=== PATIENT | female | born 1955 | race Caucasian/White ===

== ENCOUNTER → 2017-07-03 | Outpatient (CLI) | payer OTHER ==
--- NOTE | 2017-07-03 15:22 | US ---
EXAMINATION TYPE: US thyroid st tissue head/neck DATE OF EXAM: 07/03/2017 COMPARISON: NONE CLINICAL HISTORY: E04.9 GOITER. Enlarged thyroid per patient's physician GLAND SIZE: Right Lobe: 5.0 x 1.2 x 1.8 cm Overall Parenchyma: homogenous Left Lobe: 5.0 x 1.5 x 1.6 cm Overall Parenchyma: homogeneous Isthmus Thickness: 0.4 cm NODULES RIGHT: # of nodules measured on right: 3 1. 0.6 X 0.4 x 0.8 cm hypoechoic solid nodule at the mid pole with well-defined margins. This nodul e is wider than tall and shows intranodular vascularity. Prior size: no previous 2. 0.6 X 0.5 x 0.6 cm hypoechoic solid nodule at the mid pole with well-defined margins. This nodule is wider than tall and shows intranodular vascularity. Prior size: no previous 3. 0.6 X 0.4 x 0.5 cm hypoechoic solid nodule at the mid pole with well-defined margins. This nodule is wider than tall and shows intranodular vascularity. Prior size: no previous LEFT: # of nodules measured on left: 3 1. 0.7 X 0.3 x 0.5 cm hypoechoic solid nodule at the mid pole with well-defined margins. This nodul e is wider than tall and shows intranodular vascularity. Prior size: no previous 2. 0.6 X 0.3 x 0.5 cm hypoechoic solid nodule at the medial mid pole with well-defined margins. This nodule is wider than tall and shows intranodular vascularity. Prior size: no previous 3. 0.8 X 0.3 x 0.7 cm hypoechoic solid nodule at the medial/isthmus mid pole with well-defined edil ns. This nodule is wider than tall and shows intranodular vascularity. Prior size: no previous ISTHMUS: # of nodules measured in the isthmus: 1 1. 0.5 X 0.3 x 0.4 cm hypoechoic solid nodule at the right isthmus with well-defined margins. This nodule is wider than tall and shows intranodular vascularity. Prior size: no previous Bilateral neck scanned, no evidence of lymphadenopathy. Multiple small bilateral thyroid nodules with largest described above. IMPRESSION: Multiple subcentimeter thyroid nodules in an enlarged thyroid gland compatible with a multinodular go iter. The largest on the left measures 7 mm and the largest on the right measures 8 mm. Surveillance is recommended as these do not meet size criteria for percutaneous biopsy.
--- NOTE | 2017-07-04 08:33 | MM ---
Reason for exam: additional evaluation requested from prior study. Last mammogram was performed 1 year and 1 month ago. History: Patient is postmenopausal and has history of breast cancer at age 49. Malignant left mammotome panel of the left breast, August 26, 2005. Saline implant in the left breast, 2005. Mastectomy of the left breast, 2005. Stereotactic core biopsy of the left breast, December 31, 2002. Benign excisional biopsy, February 21, 1997. Excisional biopsy of the left breast, 1980. Took tamoxifen for 5 years 8 months beginning at age 49. Physical Findings: Nurse did not find any significant physical abnormalities on exam. MG Diagnostic Mammo RT w CAD CC and MLO view(s) were taken of the right breast. Prior study comparison: May 28, 2016, right breast MG diagnostic mammo RT w CAD. May 01, 2015, right breast MG 3d diag mammo w/cad RT. There are scattered fibroglandular densities. No suspicious abnormality. No significant new findings when compared with previous films. These results were verbally communicated with the patient and result sheet given to the patient on 07/03/17. ASSESSMENT: Negative, BI-RAD 1 RECOMMENDATION: Follow-up diagnostic mammogram of both breasts in 1 year.
== END | disposition home or self-care (01) ==
LOC: RADMAMWWP 14:08
PROVIDERS: ATTEND Family Medicine
DX: E04.2 Nontoxic multinodular goiter (principal); Z85.3 Personal history of malignant neoplasm of breast
CPT/HCPCS: 76536; 77065

== ENCOUNTER → 2018-07-30 | Outpatient (CLI) | payer OTHER ==
--- NOTE | 2018-07-30 10:12 | US ---
EXAMINATION TYPE: US thyroid st tissue head/neck DATE OF EXAM: 07/30/2018 COMPARISON: Thyroid ultrasound March 02, 2018 CLINICAL HISTORY: E04.2 NMG. fu thyroid nodules, no bx, no thyroid meds GLAND SIZE: Right Lobe: 4.6 x 1.9 x 1.5 cm Overall Parenchyma: homogenous Left Lobe: 5.0 x 2.0 x 1.2 cm Overall Parenchyma: homogeneous Isthmus Thickness: 0.4 cm NODULES RIGHT: # of nodules measured on right: 3 1. 0.4 X 0.4 x 0.3 cm hypoechoic nodule at the mid pole with well-defined margins. This nodule is wider than tall and shows intranodular vascularity. Prior size: 0.6 x 0.4 x 0.8 cm 2. 0.5 X 0.5 x 0.4 cm isoechoic nodule at the mid pole with well-defined margins. This nodule is wi nicki than tall and shows intranodular vascularity. Prior size: 0.6 x 0.5 x 0.5 cm 3. 0.6 X 0.5 x 0.3 cm hypoechoic nodule at the mid pole with well-defined margins. This nodule is w ider than tall and shows intranodular vascularity. Prior size: 0.6 x 0.4 x 0.5 cm LEFT: # of nodules measured on left: 3 1. 0.6 X 0.4 x 0.3 cm hypoechoic nodule at the mid pole with well-defined margins. This nodule is wider than tall and shows intranodular vascularity. Prior size: 0.7 x 0.3 x 0.5 cm 2. 0.5 X 0.5 x 0.3 cm hypoechoic nodule at the medial mid pole with well-defined margins. This nod ule is wider than tall and shows intranodular vascularity. Prior size: 0.6 x 0.3 x 0.5 cm 3. 0.5 X 0.6 x 0.3 cm hypoechoic nodule at the medial/isthmus pole with well-defined margins. This nodule is wider than tall and shows intranodular vascularity. Prior size: 0.8 x 0.3 x 0.7 cm ISTHMUS: # of nodules measured in the isthmus: 1 1. 0.4 X 0.4 x 0.2 cm solid nodule at the right isthmus with well-defined margins. This nodule is wider than tall and shows no intranodular vascularity. Prior size: 0.5 x 0.3 x 0.4 cm Bilateral neck scanned, no evidence of lymphadenopathy. There is redemonstration of homogeneous normal-sized thyroid with scattered small nodules bilaterally . No significant interval change. IMPRESSION: Overall stable findings, no new or greater than 1 cm solid or cystic nodules identified.
--- NOTE | 2018-07-30 11:38 | US ---
EXAMINATION TYPE: US abdomen complete DATE OF EXAM: 07/30/2018 COMPARISON: NONE CLINICAL HISTORY: R10.11 Right Upper Quad Pain. NPO, burning pain EXAM MEASUREMENTS: Liver Length: 15.4 cm Gallbladder Wall: 0.1 cm CBD: 0.3 cm CHD: 0.3 cm Spleen: 8.6 cm Right Kidney: 11.1 x 5.0 x 5.4 cm Left Kidney: 11.2 x 5.0 x 5.7 cm Pancreas: wnl Liver: left lobe cystic appearing lesion seen= 0.8 x 0.9 x 0.6 cm Gallbladder: wnl Evidence for sonographic [place]'s sign: neg CBD: wnl CHD: wnl Spleen: Limited visualization, wnl as seen Right Kidney: wnl Left Kidney: upper pole cystic appearing lesion seen in sinus= 1.8 x 1.8 x 1.5 cm Upper IVC: wnl Abd Aorta: No AAA visualized The visualized liver is heterogeneous. Technologist moeller subcentimeter thin-walled cyst left hepatic lobe. Evaluation for focal masses is suboptimal due to the heterogeneity. No acute hepatic ductal di latation is seen. The intrahepatic portion of the IVC and visualized abdominal aorta are within norm al limits. There is no evidence of cholelithiasis. Common bile duct is unremarkable. The visualize d portions of the pancreas are heterogeneous without mass or ductal dilatation. The spleen is unrema rkable. Kidneys are symmetric and free of hydronephrosis. Technologist moeller simple appearing 1.8 cm cyst upper to mid pole level left kidney. IMPRESSION: Suboptimal study without acute finding identified to account for patient's symptoms
== END | disposition home or self-care (01) ==
LOC: RADUSWWP 07:25
PROVIDERS: ATTEND Family Medicine
DX: R10.11 Right upper quadrant pain (principal); E04.2 Nontoxic multinodular goiter; Z85.3 Personal history of malignant neoplasm of breast
CPT/HCPCS: 76536; 76700

== ENCOUNTER → 2018-08-05 | Outpatient (CLI) | payer OTHER ==
--- NOTE | 2018-08-05 08:45 | MM ---
Reason for exam: additional evaluation requested from prior study. Last mammogram was performed 1 year and 1 month ago. History: Patient is postmenopausal and has history of breast cancer at age 49. Malignant left mammotome panel of the left breast, August 26, 2005. Saline implant in the left breast, 2005. Mastectomy of the left breast, 2005. Stereotactic core biopsy of the left breast, December 31, 2002. Benign excisional biopsy, February 21, 1997. Excisional biopsy of the left breast, 1980. Took tamoxifen for 5 years 8 months beginning at age 49. Physical Findings: Nurse did not find any significant physical abnormalities on exam. MG Diagnostic Mammo RT w CAD CC, MLO, and ML view(s) were taken of the right breast. Prior study comparison: July 03, 2017, right breast MG diagnostic mammo RT w CAD. May 28, 2016, right breast MG diagnostic mammo RT w CAD. The breast tissue is heterogeneously dense. This may lower the sensitivity of mammography. There are benign appearing round calcifications in the right breast. There is no discrete abnormality. These results were verbally communicated with the patient and result sheet given to the patient on 08/05/18. ASSESSMENT: Benign, BI-RAD 2 RECOMMENDATION: Follow-up diagnostic mammogram of the right breast in 1 year.
== END ==
LOC: RADMAMWWP 07:27
PROVIDERS: ATTEND Family Medicine
DX: Z08 Encounter for follow-up examination after completed treatment for malignant neoplasm (principal); Z85.3 Personal history of malignant neoplasm of breast
CPT/HCPCS: 77065

== ENCOUNTER → 2019-01-07 | Outpatient (CLI) | payer OTHER ==
--- NOTE | 2019-01-07 16:55 | XR ---
EXAMINATION TYPE: XR chest 2V DATE OF EXAM: 01/07/2019 COMPARISON: NONE HISTORY: M54.6, pain TECHNIQUE: Frontal and lateral views of the chest are obtained. FINDINGS: There is no focal air space opacity, pleural effusion, or pneumothorax seen. The cardiac silhouette size is within normal limits. The patient is rotated. The osseous structures are intact. IMPRESSION: No acute cardiopulmonary process.
--- NOTE | 2019-01-07 21:37 | CT ---
EXAMINATION TYPE: CT abdomen pelvis wo con DATE OF EXAM: 01/07/2019 HISTORY: Pt c/o RT upper quadrant pain, more to the side and lower central abdominal pain CT DLP: 832 mGycm. Automated Exposure Control for Dose Reduction was Utilized. TECHNIQUE: CT scan of the abdomen and pelvis is performed with oral but without IV contrast. COMPARISON: NONE FINDINGS: Within the limitations of a non-contrast study, the following observations are made. LUNG BASES: Partial visualization of left breast implant. Patchy left basilar linear scarring and/or atelectasis LIVER/GB: No CT dense intraluminal gallstones or surrounding inflammatory change around gallbladder. PANCREAS: No significant abnormality is seen. SPLEEN: No significant abnormality is seen. ADRENALS: No significant abnormality is seen. KIDNEYS: There is 1.2 cm round low-density lesion centrally left kidney axial image 39 2 small to fur ther characterize but presumed benign. No renal calculi or hydronephrosis is seen bilaterally. BOWEL: Oral contrast reaches level of sigmoid colon. No suspicious small or large bowel dilatation. GENITAL ORGANS: Anteverted uterus is seen. LYMPH NODES: No greater than 1cm abdominal or pelvic lymph nodes are appreciated. OSSEOUS STRUCTURES: No significant abnormality is seen. OTHER: No significant additional abnormality is seen. IMPRESSION: No acute finding identified to account for patient's symptoms of right upper quadrant desmond n.
== END | disposition home or self-care (01) ==
LOC: RADCTMAIN 15:15
PROVIDERS: ATTEND Family Medicine
DX: R10.9 Unspecified abdominal pain (principal); M54.6 Pain in thoracic spine
CPT/HCPCS: 71046; 74176

== ENCOUNTER 2019-01-20 09:42 | Day surgery (SDC) | payer OTHER ==
[2019-01-18 11:10] VITALS: BMI 26.6
--- NOTE | 2019-01-20 08:49 | P.GSHP ---
History of Present Illness H&P Date: 01/20/19 CHIEF COMPLAINT: Colon screen HISTORY OF PRESENT ILLNESS: The patient is a 63-year-old female who presents for colon screen. Lower endoscopy was offered for further evaluation and management. PAST MEDICAL HISTORY: Please see list. PAST SURGICAL HISTORY: Please see list. MEDICATIONS: Please see list. ALLERGIES: Please see list. SOCIAL HISTORY: No illicit drug use FAMILY HISTORY: No reports of Crohn disease or ulcerative colitis. REVIEW OF ORGAN SYSTEMS: CONSTITUTIONAL: No reports of fevers or chills. PHYSICAL EXAM: VITAL SIGNS: Stable GENERAL: Well-developed pleasant in no acute distress. HEENT: No scleral icterus. Extraocular movements grossly intact. Moist buccal mucosa. NECK: Supple without lymphadenopathy. CHEST: Unlabored respirations. Equal bilateral excursions. CARDIOVASCULAR: Regular rate and rhythm. Distal 2+ pulses. ABDOMEN: Soft, nontender, nondistended. MUSCULOSKELETAL: No clubbing, cyanosis, or edema. ASSESSMENT: 1. Colon screen. PLAN: 1. Recommend proceeding with a lower endoscopy Past Medical History Past Medical History: Cancer Additional Past Medical History / Comment(s): HX LT BREAST CANCER 2005. RECENT ABD. PAIN AND DIARRHEA History of Any Multi-Drug Resistant Organisms: None Reported Past Surgical History: Breast Surgery Additional Past Surgical History / Comment(s): LT MASTECTOMY. COLONOSCOPY Past Anesthesia/Blood Transfusion Reactions: No Reported Reaction Smoking Status: Former smoker - Past Family History Mother Family Medical History: Cancer Brother(s) Family Medical History: Deep Vein Thrombosis (DVT) Medications and Allergies Home Medications Medication Instructions Recorded Confirmed Type No Known Home Medications 01/18/19 01/18/19 History Allergies Allergy/AdvReac Type Severity Reaction Status Date / Time Penicillins Allergy Unknown Verified 01/18/19 11:02 Childhood
[~2019-01-20 09:42] MED LIST: LACTATED RINGERS 1,000 ML IV SCH; LIDOCAINE 1% 20 ML VIAL (10MG/ML) FOR IV START INTRADERMA PRN
[2019-01-20 10:07] VITALS: TEMP 98.5
[2019-01-20] MEDS ORDERED: PROPOFOL 10 MG/ML 20 ML VIAL IV ONE (10:24)
[2019-01-20] MEDS ORDERED: LIDOCAINE 1% INJ 10MG/ML (20 ML MDV) ONE (10:24)
--- NOTE | 2019-01-20 10:52 | P.PCN ---
Date of Procedure: 01/20/19 Description of Procedure: PREOPERATIVE DIAGNOSIS: Colonoscopy screening Personal history of colon polyps Family history cancer, mother POSTOPERATIVE DIAGNOSIS: Colonoscopy screening Personal history of colon polyps Family history cancer, mother Sigmoid colon polyps OPERATION: Colonoscopy to the ileocecal valve and appendiceal orifice. Colonoscopy with multiple cold forceps biopsies. SURGEON: Miya Longoria MD. ANESTHESIA: MAC. INDICATIONS: The patient is a 63-year-old female who presents for colonoscopy screening. Last colonoscopy 5 years ago. Benefits and risks were described and informed consent was obtained. DESCRIPTION OF PROCEDURE: The patient had undergone Suprep. She had been brought into the operating room and laid in the left lateral decubitus position. After adequate intravenous sedation, the rectum was examined with 2% lidocaine jelly. No external hemorrhoids were encountered. The rectal tone was within normal limits. No lesions were palpated in the rectal vault. An Olympus colonoscope was advanced until the ileocecal valve and appendiceal orifice were clearly viewed. The prep was good. The scope was removed with visualization of each mucosal fold. No scattered diverticulosis was encountered. Colonic polyps were found and cold forcep biopsy. No evidence of focal colitis was found. Retroflexion of the scope demonstrated grade 1 internal hemorrhoids without active bleeding or inflammation. The colon was desufflated. The patient had tolerated the procedure well. Withdrawal time was over 6 minutes. FINDINGS: Aronchick preparation quality scale 2 (1-5) Internal hemorrhoids, grade 1 No external hemorrhoids, grade 2. No arteriovenous malformations No scattered diverticulosis Removal of 2 polyps: - Cold forceps biopsy at 30 cm from the anal verge x 2 , 4 mm and 3 mm polyp, descending colon No focal colitis. RECOMMENDATIONS: Repeat colonoscopy 3 years, 2021 Plan - Discharge Summary Discharge Rx Participant: No New Discharge Prescriptions: No Action No Known Home Medications Discharge Medication List No Known Home Medications 01/18/19 [History]
[2019-01-20 10:54] VITALS: RESP 16
[2019-01-20 11:14] VITALS: BP 127/90; PULSE 64
== END 2019-01-20 11:50 | disposition home or self-care (01) ==
LOC: ORWHC2ENDO 09:42
PROVIDERS: ATTEND Surgery Plastic and Reconstructive Surgery
DX: Z12.11 Encounter for screening for malignant neoplasm of colon (principal); K64.0 First degree hemorrhoids; D12.5 Benign neoplasm of sigmoid colon; Z80.9 Family history of malignant neoplasm, unspecified; Z85.3 Personal history of malignant neoplasm of breast; Z86.010 Personal history of colon polyps; Z88.0 Allergy status to penicillin
CPT/HCPCS: 88305; 45380; J2001; J2704

== ENCOUNTER 2019-03-02 06:25 | Day surgery (SDC) | payer OTHER ==
[2019-02-24 15:24] VITALS: BMI 27.4
[~2019-03-02 06:25] MED LIST changes: +DEXAMETHASONE SOD PHOSPHATE 10 MG/ML 1 ML VIAL IV ONE; +MIDAZOLAM 2 MG/2 ML VIAL IV PRN; +ONDANSETRON 4 MG/2 ML VIAL IVP ONE; +Pre Op ABX Message 1 EACH MISC MISCELLANE ONE; +SCOPOLAMINE 1.5MG/72HR PATCH TRANSDERM ONE
[2019-03-02] MEDS ORDERED: LIDOCAINE 1% 20 ML VIAL (10MG/ML) FOR IV START SQ ONE (07:03)
[2019-03-02] MEDS ORDERED: LIDOCAINE 1% INJ 10MG/ML (20 ML MDV) ONE (07:25)
[2019-03-02] MEDS ORDERED: MIDAZOLAM 2 MG/2 ML VIAL ONE (07:25)
[2019-03-02] MEDS ORDERED: PROPOFOL 10 MG/ML 20 ML VIAL IV ONE (07:25)
[2019-03-02] MEDS ORDERED: fentaNYL (PF) 50 MCG/ML 2 ML AMP ONE (07:25)
[2019-03-02] MEDS ORDERED: KETOROLAC 30 MG/ML 1 ML VIAL ONE (07:25)
[2019-03-02] MEDS ORDERED: SODIUM CHLORIDE 0.9% 50 ML with ceFAZolin 2,000 MG IV ONE ×2 (07:30)
[2019-03-02 08:49] VITALS: TEMP 96.8
[2019-03-02] MEDS: HYDROmorphone 0.5 MG/0.5 ML SYRINGE IVP PRN ×4 (08:50→09:00)
[2019-03-02] MEDS ORDERED: LACTATED RINGERS 1,000 ML IV ONE (09:15)
--- NOTE | 2019-03-02 09:22 | OP ---
OPERATIVE REPORT DATE OF SURGERY: March 02, 2019. SURGEON: Austin Riley MD PREOPERATIVE DIAGNOSES: 1. Capsular contracture, left breast. 2. Personal history of breast cancer. POSTOPERATIVE DIAGNOSES: 1. Capsular contracture, left breast. 2. Personal history of breast cancer. OPERATIVE PROCEDURES: 1. Removal of left breast implant. 2. Capsulectomy. OPERATIVE INDICATIONS: The patient is a 63-year-old female who has a past history of breast cancer involving the left breast for which she underwent mastectomy and then reconstructive surgery with tissue expansion and subsequent placement of the implant with nipple reconstruction. The patient's surgeries were performed in 2005. The textured shaped implant was used for her reconstruction. 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 The patient was seen and evaluated in the office. A capsular contracture is present. It is not severe. There is no associated seroma or lymphadenopathy on clinical exam. The patient was counseled to surgical options. She does not want any kind of breast implant whatsoever and desires that this implant is removed. I have also recommended a complete capsulectomy. The patient understands if there is sufficient fluid present around the implant or chronic seroma that this could be tested for a breast implant associated cancer, however, I feel it is unlikely there will be sufficient fluid for any practical testing. She has requested I perform the surgery today. OPERATIVE PROCEDURE SUMMARY: The patient is seen in presurgical area, markings made, procedure reviewed. All questions answered. She is transported to the operating room where she was placed in supine position. Following the induction of general anesthesia via the laryngeal mask airway, the patient was prepped and draped in usual fashion. The left prior mastectomy incision site was used for incision today. Skin marker was used to judit the area. The incision then made dividing skin in full-thickness fashion, transverse fashion. Followed by use of cauterization device in subcutaneous tissue layer and then elevate skin and subcutaneous tissue flaps off the muscle flap capsular edge. The muscle flap was quite adherent to the capsule and with the implant present it would require extending the incision to remove the capsule. Therefore, incision was made through the muscle flap tissue exposing the implant. The implant was intact. There was no fluid of any significance in the cavity. The implant was sent to pathology. The capsulectomy was now performed by grasping the capsule edges with Allis clamps and as well as using Allis clamps to retract the muscular edge and dissection performed with cautery removing the capsule and sending the tissue to pathology. Hemostasis maintained with cautery while dissecting the capsule. Irrigation was now performed using a liter of saline and hemostasis was excellent. A 10 flat channel drain was inserted in the surgical field and brought out a separate stab incision in left anterior lateral chest wall and sutured in place with 2-0 Prolene. The drains connected to close bulb suction. The incision was now closed approximating the deep dermis with inverted interrupted 4-0 Monocryl and closed the skin with running 5-0 Prolene. Surgical lira cleansed with saline, dried and postoperative bandages placed using Kerlix squares secured with 3M Medipore tape and then positioned a size 3 mammary support with additional gauze padding anteriorly to apply pressure to the site. The patient was then awakened from her anesthetic, laryngeal mask airway removed and transferred to recovery room in good condition with stable vital signs. The estimated blood was 25 mL. There were no complications. MMODL / IJN: [id number] /
[2019-03-02] MEDS ORDERED: HYDROcodone/APAP 5-325MG 1 EACH TAB PO ONE ×3 (10:00→10:40)
[2019-03-02 10:26] VITALS: RESP 16
[2019-03-02 11:38] VITALS: BP 111/69; PULSE 64
== END 2019-03-02 11:40 | disposition home or self-care (01) ==
LOC: OR 06:25
PROVIDERS: ATTEND Plastic Surgery
DX: T85.44XA Capsular contracture of breast implant, initial encounter (principal); N60.32 Fibrosclerosis of left breast; N61.0 Mastitis without abscess; Z85.3 Personal history of malignant neoplasm of breast; Z90.12 Acquired absence of left breast and nipple; Z88.0 Allergy status to penicillin; Z87.891 Personal history of nicotine dependence; Z98.890 Other specified postprocedural states; Y81.2 Prosthetic and other implants, materials and accessory general- and plastic-surgery devices associated with adverse incidents
CPT/HCPCS: 19371; 88300; 88302; J2250; J1100; J2405; J0690; J2001; J3010; J1885; J2704; J1170

== ENCOUNTER 2020-10-25 10:31 | Day surgery (SDC) | payer BC, OTHER ==
[2020-10-19 08:36] VITALS: BMI 24.2
[~2020-10-25 10:31] MED LIST changes: -DEXAMETHASONE SOD PHOSPHATE 10 MG/ML 1 ML VIAL IV ONE; +DEXAMETHASONE SOD PHOSPHATE 4 MG/ML 1 ML VIAL IV ONE; +HYDROmorphone 0.5 MG/0.5 ML SYRINGE IVP PRN; +LIDOCAINE 1% (10MG/ML) FOR IV START INTRADERMA PRN; -LIDOCAINE 1% 20 ML VIAL (10MG/ML) FOR IV START INTRADERMA PRN; -ONDANSETRON 4 MG/2 ML VIAL IVP ONE; -SCOPOLAMINE 1.5MG/72HR PATCH TRANSDERM ONE
[2020-10-25 11:02] VITALS: RESP 16
[2020-10-25] MEDS: ONDANSETRON 4 MG/2 ML VIAL IVP ONE ×2 (11:17→14:56)
[2020-10-25] MEDS ORDERED: LIDOCAINE 1% INJ 10MG/ML (20 ML MDV) ONE (13:31)
[2020-10-25] MEDS ORDERED: SUCCINYLCHOLINE CHLORIDE 100 MG/5 ML SYR IV ONE (13:31)
[2020-10-25] MEDS ORDERED: MIDAZOLAM 2 MG/2 ML VIAL ONE (13:31)
[2020-10-25] MEDS ORDERED: fentaNYL (PF) 50 MCG/ML 2 ML AMP ONE (13:31)
[2020-10-25] MEDS ORDERED: PROPOFOL 10 MG/ML 20 ML VIAL IV ONE (13:31)
[2020-10-25 14:50] VITALS: TEMP 98
[2020-10-25] MEDS ORDERED: HYDROcodone/APAP 5-325MG 1 EACH TAB ONE (16:00)
[2020-10-25] MEDS ORDERED: HYDROcodone/APAP 5-325MG 1 EACH TAB PO ONE (16:05)
[2020-10-25 16:43] VITALS: BP 114/76; PULSE 51
--- NOTE | 2020-10-25 19:44 | OP ---
OPERATIVE REPORT DATE OF SERVICE: 10/25/2020 PREOPERATIVE DIAGNOSES: 1. Acquired loss of left breast. 2. Personal history of breast cancer. POSTOPERATIVE DIAGNOSES: 1. Acquired loss of left breast. 2. Personal history of breast cancer. OPERATIVE PROCEDURE: 1. Exploration of left reconstructed breast with insertion of tissue production control scheduler for delayed left breast reconstruction. 2. Implantation of reconstructive graft for left breast reconstruction. OPERATIVE INDICATIONS: Patient is a 64-year-old female who underwent mastectomy in 2005 with tissue production control scheduler style reconstruction for treatment of left breast cancer. The patient's reconstruction second procedure included an implantation of a textured breast implant. The patient recovered well and was satisfied with the result. Last year, the patient presented to the office upset over concerns of the textured breast implants and wanted the implant removed. She was taken to surgery and implant was removed. At that time, she wanted no further reconstruction or no implants. Earlier this year, the patient returned to the office and desires to undergo breast reconstruction. The patient has lost volume and had contracture of the reconstructive envelope. The patient understands she will need to undergo a 2 stage procedure for reconstruction. Today's procedure will be revision of reconstructed breast with insertion of tissue production control scheduler including outpatient expansion and then a 2nd procedure for placement of breast implant. The patient understands potential risks and complications of the procedures and requested I perform the surgery. OPERATIVE PROCEDURE SUMMARY: The patient was seen in the preoperative area and markings made. Procedure reviewed. All questions answered. She is transported to the operating room where she was placed in supine position. Following induction of general tracheal anesthesia, the patient was prepped and draped in usual fashion. The prior mastectomy scar was used for incision point. Incision was made dividing scar tissue including subcutaneous tissue. A 10-blade scalpel and cauterizations were used to maintain hemostasis and expose underlying muscle flap tissue. Dissection of skin and subcutaneous tissues performed these layers from the muscle flap surface allowing for offsetting incision through the muscle flap tissue inferiorly. Incisions were made transversely with cauterization to divide the muscle flap tissue exposing the prior expansion cavity and the scar tissue was present. The muscle flap required re-elevation, which was performed cauterization and use of lighted retractors. Once the muscle flap was elevated and all scar tissue released, the cavity was measured and appeared appropriate. Irrigation was performed. Hemostasis was excellent. An Pick1an tissue production control scheduler was opened on the field, model 13S-MX 400 cc volume, reference number 133S-MX- 12-2, serial number [id number]. The device was only handled by the surgeon after changing gloves. It was irrigated with saline. All air extracted and 50 cc of 0.9 normal saline instilled and the device was inserted in the reconstructive cavity. The suture tabs were then secured in 3 separate locations using interrupted 3-0 Vicryl suture. With this completed, additional saline was added to the production control scheduler to make final volume 150 cc which appeared optimal. However, the muscle flap could not be approximated over the production control scheduler without significant tension at this point. SurgiMend reconstructive graft was now opened on the field revitalized in room temperature saline. The graft was prestretched and inserted in the reconstructive cavity and oriented inferior sling confirmation. The graft was placed deep to the muscle flap but over the implant. It was then sutured in place using interrupted 3-0 Vicryl sutures, Spanning the area with muscle flap that could not be closed. Irrigation was performed. Hemostasis was excellent. The incision was closed in layers, approximating deep dermis using inverted interrupted 4-0 Monocryl and completing superficial dermal and epidermal closure with running 5-0 Prolene. Surgical lira cleansed with saline and dried and postoperative bandage placed using sterile 1 inch paper tape, 4x4s, secured with Medipore tape. The final volume of saline instilled in the production control scheduler was 150 cc. Estimated blood loss of 20 cc. There were no complications. The patient was extubated in the operating room, transferred to recovery room. MMODL / IJN: [id number] /
== END 2020-10-25 17:03 | disposition home or self-care (01) ==
LOC: OR 10:31
PROVIDERS: ATTEND Plastic Surgery
DX: Z90.12 Acquired absence of left breast and nipple (principal); Z85.3 Personal history of malignant neoplasm of breast; Z88.0 Allergy status to penicillin
CPT/HCPCS: 19380; 15777; C1889; C1763; J2250; J1100; J0690; J2405; J2001; J3010; J0330; J2704; J1170

== ENCOUNTER 2021-03-20 08:40 | Day surgery (SDC) | payer BC ==
[2021-03-19 08:12] VITALS: BMI 23.8
[~2021-03-20 08:40] MED LIST changes: -MIDAZOLAM 2 MG/2 ML VIAL IV PRN; +ONDANSETRON 4 MG/2 ML VIAL IVP ONE; -Pre Op ABX Message 1 EACH MISC MISCELLANE ONE; +SCOPOLAMINE 1.5MG/72HR PATCH TRANSDERM ONE
[2021-03-20] MEDS ORDERED: GLYCOPYRROLATE 0.2 MG/ML 2 ML VIAL ONE (09:54)
[2021-03-20] MEDS ORDERED: PROPOFOL 10 MG/ML 20 ML VIAL IV ONE (09:54)
[2021-03-20] MEDS ORDERED: LIDOCAINE 1% INJ 10MG/ML (20 ML MDV) ONE (09:54)
[2021-03-20] MEDS ORDERED: ePHEDrine SULFATE/0.9% NACL/PF 50 MG/5 ML SYRINGE IV ONE (09:54)
[2021-03-20] MEDS ORDERED: ROCURONIUM 10 MG/ML (5 ML VIAL) IV ONE (09:54)
[2021-03-20] MEDS ORDERED: MIDAZOLAM 2 MG/2 ML VIAL ONE (09:54)
[2021-03-20] MEDS ORDERED: fentaNYL (PF) 50 MCG/ML 2 ML AMP ONE (09:54)
[2021-03-20] MEDS ORDERED: NEOSTIGMINE 1 MG/ML 10 ML VIAL ONE (09:54)
[2021-03-20] MEDS ORDERED: SUCCINYLCHOLINE CHLORIDE 100 MG/5 ML SYR IV ONE (09:54)
[2021-03-20 11:28] VITALS: TEMP 97
[2021-03-20 11:33] VITALS: RESP 16
[2021-03-20] MEDS ORDERED: LACTATED RINGERS 1,000 ML IV ONE ×2 (11:46)
[2021-03-20 13:38] VITALS: BP 126/74; PULSE 58
--- NOTE | 2021-03-20 16:57 | OP ---
OPERATIVE REPORT DATE OF SURGERY: March 20, 2021. SURGEON: Austin Riley. PREOPERATIVE DIAGNOSES: 1. Acquired loss left breast. 2. Personal history of breast cancer, left breast. 3. Personal history of mastectomy left breast. 4. Acquired deformity left reconstructed breast. 5. Acquired loss left breast inframammary fold. POSTOPERATIVE DIAGNOSES: 1. Acquired loss left breast. 2. Personal history of breast cancer left breast. 3. Personal history of mastectomy left breast. 4. Acquired deformity left reconstructed breast. 5. Acquired loss left breast inframammary fold. OPERATIVE PROCEDURES: 1. Replacement of left breast tissue rental representative with saline breast implant for left breast reconstruction. 2. Revision left reconstructed breast. 3. Reconstruction left breast inframammary fold via local advancement flap, 48 square cm. OPERATIVE INDICATIONS: Patient is a 65-year-old female who has undergone mastectomy for left breast and did undergo breast reconstruction at the time but it was complicated, reconstruction was lost. She returned to my office earlier this year and desired to undergo a breast reconstruction. It is elected upon a tissue rental representative technique. In the spring, a tissue rental representative was placed at surgery and she has completed subsequent outpatient expansion and has done well. She is returning to surgery today for second stage of the reconstruction process which will include removal of the rental representative, placement of a breast implant and a revision of her breast with reconstruction of the fold that has been effaced due the expansion prior surgical processes. The patient has elected to proceed with saline breast implant per her desires. She also understands her potential risks and complications related to the surgery including, but not limited to hematoma, seroma, wound healing problems, postoperative infection, among others. She has requested I perform today's surgery. OPERATIVE PROCEDURE SUMMARY: The patient was seen in preoperative area, markings made, procedure reviewed. All questions answered. She is transported to the operative room where she was placed in supine position. Following induction of general tracheal anesthesia, the patient is prepped and draped in usual fashion. The left side of mastectomy scar was marked for incision and then incision made using 10 blade scalpel dividing skin in full-thickness fashion followed by use of cautery to divide subcutaneous tissue and then elevate skin and subcutaneous tissue flaps off the underlying muscle flap and reconstructive graft layers. Extensive dissection was required to release contour irregularities and allow for optimal re-draping with the implant. Once this was completed, a second incision was made through the muscle flap graft layer offset from the first inferior transverse orientation exposing the rental representative. The rental representative was removed intact. The rental representative contained 300 mL of saline. The cavity appeared normal with no granulation tissue. No exudate. Some serous fluid. The cavity was irrigated. A complete capsulotomy incision was now made where the capsule joined the chest wall using cautery and then multiple cruciate incisions through the capsular structure to release this scar layer. With that completed, inframammary fold was now reconstructed through the inferior capsulotomy incision. Skin and subcutaneous tissue flap was created by dissection with cautery measuring 16 cm by transversely by 3 cm vertically. Once the flap was mobilized, hemostasis maintained with cautery, irrigation was performed and then the flap was advanced cephalad, secured to rib periosteal tissue in several discrete locations using interrupted mattress sutures of 2-0 Vicryl. A discrete inframammary fold was now present. Additional irrigation was performed hemostasis was optimal. Breast implant sizers were unavailable today due to the pandemic situation. However, additional implants were available. Initially a 300 mL implant was used. It was too large. The next implant opened measured 240 mL. Again, all implants opened and were only handled by the surgeon with clean gloves. All air is extracted from this device 50 mL 0.9 normal saline instilled. It was inserted in the reconstructive cavity and filled to a final volume of 240 mL. The fill port tubing was removed and the fill port seeding mechanism was securely closed under direct vision. The patient's incision temporary closed and this was evaluated in seated up position. This was the correct size for the patient. She was returned to supine position. The muscle flap graft layers were now closed over the patient's implant using interrupted 3-0 Vicryl and then the skin incision was closed in 2 layers approximating deep dermis using inverted interrupted 4-0 Monocryl and then completing the superficial dermal and epidermal closure with running 5-0 Prolene. Surgical lira now cleansed with saline. Dried postoperative bandages placed using sterile one-inch paper tape over the suture repair, then securing Kerlix squares and then a size 3 mammary support. The patient was then awakened from her anesthetic, extubated, and transferred to recovery room in good condition with stable vital signs. Estimated blood loss was 25 mL. The implant used today was from the [employer] saline-filled breast implant, style 6 8 MP 240 mL volume, reference #[id number], serial number #[id number]. MMODL / IJN: [id number] /
== END 2021-03-20 14:00 | disposition home or self-care (01) ==
LOC: OR 08:40
PROVIDERS: ATTEND Plastic Surgery
DX: Z85.3 Personal history of malignant neoplasm of breast (principal); Z90.12 Acquired absence of left breast and nipple
CPT/HCPCS: 11970; 19340; C1789; J2250; J1100; J2710; J0690; J2405; J2001; J3010; J0330; J2704; J1170

== ENCOUNTER → 2021-12-12 | Outpatient (CLI) | payer BC ==
--- NOTE | 2021-12-12 10:35 | US ---
EXAMINATION TYPE: US abdomen complete DATE OF EXAM: 12/12/2021 COMPARISON: CT: 01/07/19. US: 07/30/18 CLINICAL HISTORY: R10.11 RUQ PAIN. RUQ pain EXAM MEASUREMENTS: Liver Length: 13.6 cm Gallbladder Wall: 0.17 cm CBD: 0.39 cm Spleen: 10.0 cm Right Kidney: 13.4 x 5.1 x 4.8 cm Left Kidney: 12.9 x 5.9 x 5.2 cm Pancreas: wnl Liver: Heterogeneous echotexture Gallbladder: wnl Evidence for sonographic Quiroga's sign: No CBD: wnl Spleen: wnl Right Kidney: wnl Left Kidney: Cyst seen in mid pole measuring 2.3 x 1.7 x 1.8 cm. Upper IVC: wnl Abd Aorta: wnl The liver is homogenous. The intrahepatic portion of the IVC and proximal abdominal aorta are within normal limits. There is no evidence of cholelithiasis. Common bile duct is unremarkable. The visu alized portions of the pancreas are homogenous. The spleen is unremarkable. Kidneys are symmetric a nd free of hydronephrosis. Incidental benign-appearing 1.8 cm thin-walled cyst in the left kidney upp er to mid pole level.. IMPRESSION: No acute findings are evident.
== END | disposition home or self-care (01) ==
LOC: RADUSWWP 08:52
PROVIDERS: ATTEND Family Medicine
DX: N28.1 Cyst of kidney, acquired (principal)
CPT/HCPCS: 76700

== ENCOUNTER → 2021-12-27 | Outpatient (CLI) | payer BC ==
[2021-12-27 07:39] LABS: African American GFR (CKD) >90 (>60 ml/min/1.73 sqM); Blood Urea Nitrogen 14 mg/dL (7-17); Non-African American GFR(CKD) >90 (>60 ml/min/1.73 sqM)
--- NOTE | 2021-12-27 08:15 | CT ---
EXAMINATION TYPE: CT abdomen w con DATE OF EXAM: 12/27/2021 COMPARISON: 01/07/2019 HISTORY: Cyst of kidney. Patient having no complaints at time of scan. CT DLP: 406.5 mGycm Automated exposure control for dose reduction was used. Contrast: None Technique: Axial images 5 mm thick sections. Reconstructed images plane FINDINGS: Limited CT sections are obtained through the lung bases which are unremarkable. Note is made of a lef t breast prosthesis. CT ABDOMEN: Liver and spleen have normal density without discrete masses. Couple of tiny hypodensitie s are within the liver which may be small hepatic cysts, present previously. The pancreas is unremark able. Adrenal glands are normal. Abdominal aorta and inferior vena cava are normal. Loops of bowel within the abdomen appear unremarkable. Portion of the appendix is visualized and is n ormal. There are loops of bowel lacking oral contrast. Fecal debris is through the transverse colon. There is a 1.7 cm upper pole left renal cyst measuring 13 Hounsfield units. This was present previous ly. IMPRESSION: 1. SIMPLE APPEARING LEFT RENAL CYST
== END | disposition home or self-care (01) ==
LOC: RADCTMAIN 07:02
PROVIDERS: ATTEND Family Medicine
DX: N28.1 Cyst of kidney, acquired (principal)
CPT/HCPCS: 82565; 84520; 74160; 36415; Q9967

== ENCOUNTER → 2023-07-25 | Outpatient (CLI) | payer BC ==
[2023-07-25 15:26] LABS: T4, Free (Free Thyroxine) 1.32 ng/dL (0.80-1.80)
== END | disposition home or self-care (01) ==
LOC: LABWHC1 11:21
PROVIDERS: ATTEND Family Medicine
DX: R19.5 Other fecal abnormalities (principal)
CPT/HCPCS: 36415; 83516; 84439; 84443

== ENCOUNTER → 2023-11-11 | Outpatient (CLI) | payer BC ==
--- NOTE | 2023-11-12 13:04 | MM ---
Reason for Exam: Screening (asymptomatic). Last mammogram was performed 1 year(s) and 3 month(s) ago. Patient History: Menarche at age 13. First Full-Term at age 23. Postmenopausal. Breast cancer, left, age 49. Tamoxifen for 5 years, 8 months, from age 49 until age 54. 2005, Mastectomy on the Left side. 1980, Excisional Biopsy on the Left side. 08/26/2005, Malignant Core Biopsy on the left side. 12/31/2002, Stereotactic Core Biopsy on the Left side. Benign Excisional Biopsy. 2005, Implant on the left side. Prior Study Comparison: 05/28/2016 Right Diagnostic Mammogram, [facility]. 07/03/2017 Right Diagnostic Mammogram, [facility]. 08/05/2018 Right Diagnostic Mammogram, [facility]. 06/22/2020 Right Screening Mammogram, [facility]. 06/28/2021 Right Screening Mammogram, [facility]. 08/16/2022 Right Screening Mammogram, [facility]. Tissue Density: Right: The breasts are heterogeneously dense, which may obscure small masses. Findings: Analyzed By CAD. There is no suspicious group of microcalcifications or new suspicious mass in the right breast. Overall Assessment: Benign, BI-RAD 2 Management: Screening Mammogram of the right breast in 1 year. . Patient should continue monthly self-breast exams. A clinical breast exam by your physician is recommended on an annual basis. This exam should not preclude additional follow-up of suspicious palpable abnormalities. Note on Brooklynn scores and lifetime risk: 1. A Brooklynn score greater than 3% is considered moderate risk. If this is the case, consider specialist referral to assess eligibility for a risk reducing agent. 2. If overall lifetime risk for the development of breast cancer is 20% or higher, the patient may qualify for future screening with alternating mammogram and breast MRI. Electronically signed and approved by: Main Jones M.D. Radiologis
== END | disposition home or self-care (01) ==
LOC: RADMAMWWP 07:13
PROVIDERS: ATTEND Family Medicine
DX: Z12.31 Encounter for screening mammogram for malignant neoplasm of breast (principal); Z78.0 Asymptomatic menopausal state; Z85.3 Personal history of malignant neoplasm of breast; Z98.82 Breast implant status; Z90.12 Acquired absence of left breast and nipple
CPT/HCPCS: 77067

== ENCOUNTER → 2024-02-18 | Outpatient (CLI) | payer BC ==
--- NOTE | 2024-02-18 13:50 | XR ---
EXAMINATION TYPE: XR cervical spine limited DATE OF EXAM: 02/18/2024 1:45 PM CLINICAL INDICATION: Female, 68 years old with history of M54.2 CERVICALGIA; [facility] COMPARISON: None TECHNIQUE: The cervical spine was imaged in frontal, lateral, and odontoid. FINDINGS: The osseous structures show normal alignment without evidence of an acute fracture. There are osteoph ytes noted throughout the cervical spine on the anterior and lateral aspects of the vertebral bodies. The intervertebral disk spaces are narrowed at multiple levels Pedicles are intact. Soft tissues ar e within normal limits. The odontoid appears intact. IMPRESSION: 1. No fracture or dislocation. 2. Mild to moderate degenerative disc disease changes of the cervical spine. [facility], , 02/18/2024 1:48 PM
== END | disposition home or self-care (01) ==
LOC: RADXRMAIN 13:31
PROVIDERS: ATTEND Family Medicine
DX: M50.30 Other cervical disc degeneration, unspecified cervical region (principal)
CPT/HCPCS: 72040

== ENCOUNTER → 2024-11-19 | Outpatient (CLI) | payer BC ==
--- NOTE | 2024-11-19 07:46 | MM ---
Reason for Exam: Screening (asymptomatic). Last screening mammogram was performed 12 month(s) ago. Patient History: Menarche at age 13. First Full-Term at age 23. Postmenopausal. Breast cancer, left, age 49. Tamoxifen for 5 years, 8 months, from age 49 until age 54. 2005, Mastectomy on the Left side. 1980, Excisional Biopsy on the Left side. 08/26/2005, Malignant Core Biopsy on the left side. 12/31/2002, Stereotactic Core Biopsy on the Left side. Benign Excisional Biopsy. 2005, Implant on the left side. Prior Study Comparison: 06/28/2021 Right Screening Mammogram, [facility] . 08/16/2022 Right Screening Mammogram, [facility] . 11/11/2023 Right MG screen bell unilateral w/cad, [facility]. Tissue Density: Right: The breasts are heterogeneously dense, which may obscure small masses. Findings: Analyzed By CAD. Tiny area of chronic nodularity central inner aspect right breast. There is no suspicious group of microcalcifications or new suspicious mass in either breast. Overall Assessment: Benign, BI-RAD 2 Management: Screening Mammogram of the right breast in 1 year. Patient should continue monthly self-breast exams. A clinical breast exam by your physician is recommended on an annual basis. This exam should not preclude additional follow-up of suspicious palpable abnormalities. [facility], , 11/19/2024 7:36 AM. Electronically signed and approved by: Mayra Mckinney M.D. Radiologist
== END | disposition home or self-care (01) ==
LOC: RADMAMWWP 06:54
PROVIDERS: ATTEND Family Medicine
DX: Z12.31 Encounter for screening mammogram for malignant neoplasm of breast (principal); R92.331 Mammographic heterogeneous density, right breast; Z78.0 Asymptomatic menopausal state; Z85.3 Personal history of malignant neoplasm of breast
CPT/HCPCS: 77067